=== PATIENT | female | born 1995 | race Caucasian/White ===

== ENCOUNTER 2017-03-03 16:39 | Emergency (ER) | payer BC ==
[~2017-03-03] VITALS: Ht 162.6 cm; Wt 62.5 kg
[2017-03-03] MEDS ORDERED: MOTRIN800 MG PO (18:32)
[2017-03-03 19:17] VITALS: BP 122/81
== END 2017-03-03 19:18 | disposition home or self-care (01) ==
LOC: EME 16:39
DX: S20.229A Contusion of unspecified back wall of thorax, initial encounter (principal); R55 Syncope and collapse; S90.32XA Contusion of left foot, initial encounter; W17.89XA Other fall from one level to another, initial encounter; Y93.39 Activity, other involving climbing, rappelling and jumping off; Z88.1 Allergy status to other antibiotic agents
CPT/HCPCS: 72170; 73630; 84702; 93005; 99281; 99284